=== PATIENT | female | born 1990 | race American Indian/Alaskan Native ===

== ENCOUNTER 2021-06-11 21:11 | Emergency (ER) | payer MEDICAID ==
[2021-06-11 21:24] VITALS: BP 116/59
[2021-06-11] MEDS ORDERED: LIDOCAINE-MPF (1%) 10 MG/1 ML VIAL 5 ML INFILTRATI ONE (21:50)
[2021-06-11] MEDS ORDERED: ACETAMINOPHEN 500 MG TAB PO ONE (21:50)
[2021-06-11] MEDS ORDERED: TETANUS,DIPH,PERTUSS(ACELL) VACCINE 0.5 ML SYRINGE IM ONE (21:50)
[2021-06-11] MEDS ORDERED: IBUPROFEN 600 MG TAB PO ONE (21:50)
--- NOTE | 2021-06-11 23:01 | Emergency Department Report ---
ED General Adult HPI - General Chief complaint: Puncture Wound Stated complaint: RIGHT HAND INJURY Source: patient Mode of arrival: Ambulatory Limitations: No Limitations - History of Present Illness Initial comments: Patient is a 30-year-old -[place] female with no past medical history presents to the ED with complaint of acute onset persistent severe painful right thumb puncture wound after she accidentally had a metallic fishhook punctured her right thumb and got embedded into it about 2 hours prior to arrival in the ED. Patient states that she had forgotten a fishhook in her vehicle when she went to the trunk of the vehicle to retrieve the fishhook and accidentally it ended up puncturing her right thumb and got embedded into it. Patient states that she is not up-to-date with her tetanus vaccinations. Patient denies numbness and tingling or weakness of right hand or right hand, fall, nausea, vomiting, dizziness, syncope or heavy lifting. MD Complaint: Painful right thumb puncture wound -: Sudden, hour(s) (2) Location: upper extremity (Right thumb) Radiation: non-radiation Severity scale (0 -10): 8 Quality: aching, sharp Consistency: constant Improves with: none Worsens with: none Associated Symptoms: denies other symptoms, other (Small puncture wound on right thumb with fishhook). denies: confusion, chest pain, cough, diaphoresis, fever/chills, headaches, loss of appetite, malaise, nausea/vomiting, rash, seizure, shortness of breath, syncope Treatments Prior to Arrival: none - Related Data Previous Rx's Medication Instructions Recorded Last Taken Type Ibuprofen [Motrin] 800 mg PO Q8HR PRN #30 tablet 06/11/21 Unknown Rx Sulfamethoxazole/Trimethoprim 1 each PO Q12H #20 tablet 06/11/21 Unknown Rx [Bactrim DS TAB] Allergies Allergy/AdvReac Type Severity Reaction Status Date / Time No Known Allergies Allergy Unverified 06/11/21 21:26 ED Review of Systems ROS: Stated complaint: RIGHT HAND INJURY Other details as noted in HPI Constitutional: denies: chills, fever Eyes: denies: eye pain, eye discharge, vision change ENT: denies: ear pain, throat pain Respiratory: denies: cough, shortness of breath, wheezing Cardiovascular: denies: chest pain, palpitations Endocrine: no symptoms reported Gastrointestinal: denies: abdominal pain, nausea, diarrhea Genitourinary: denies: urgency, dysuria, discharge Musculoskeletal: arthralgia (Painful right thumb due to a small puncture wound with fishhook). denies: back pain, joint swelling Skin: other (Small puncture wound with a fishhook on right thumb with a localized pain). denies: rash, lesions Neurological: denies: headache, weakness, paresthesias Psychiatric: denies: anxiety, depression Hematological/Lymphatic: denies: easy bleeding, easy bruising ED Past Medical Hx - Past Medical History Previous Medical History?: No - Surgical History Past Surgical History?: No - Social History Smoking Status: Never Smoker Substance Use Type: None - Medications Home Medications: Home Medications Medication Instructions Recorded Confirmed Last Taken Type Ibuprofen [Motrin] 800 mg PO Q8HR PRN #30 tablet 06/11/21 Unknown Rx Sulfamethoxazole/Trimethoprim 1 each PO Q12H #20 tablet 06/11/21 Unknown Rx [Bactrim DS TAB] ED Physical Exam - General Limitations: No Limitations General appearance: alert, in no apparent distress - Head Head exam: Present: atraumatic, normocephalic, normal inspection - Eye Eye exam: Present: normal appearance, PERRL, EOMI Pupils: Present: normal accommodation - ENT ENT exam: Present: normal exam, normal orophraynx, mucous membranes moist, TM's normal bilaterally, normal external ear exam - Neck Neck exam: Present: normal inspection, full ROM - Respiratory Respiratory exam: Present: normal lung sounds bilaterally. Absent: respiratory distress, wheezes, rales, rhonchi, chest wall tenderness, accessory muscle use - Cardiovascular Cardiovascular Exam: Present: regular rate, normal rhythm, normal heart sounds. Absent: systolic murmur, diastolic murmur, rubs, gallop - GI/Abdominal GI/Abdominal exam: Present: soft, normal bowel sounds. Absent: tenderness, guarding, rebound, hyperactive bowel sounds, hypoactive bowel sounds, organomegaly - Extremities Exam Extremities exam: Present: normal inspection, full ROM, tenderness (Palpable right thumb tenderness due to a small puncture wound with metallic fishhook still embedded), normal capillary refill. Absent: pedal edema, joint swelling, calf tenderness - Back Exam Back exam: Present: normal inspection, full ROM. Absent: tenderness, CVA tenderness (R), CVA tenderness (L), muscle spasm, paraspinal tenderness, vertebral tenderness - Neurological Exam Neurological exam: Present: alert, oriented X3, CN II-XII intact, normal gait, reflexes normal - Psychiatric Psychiatric exam: Present: normal affect, normal mood - Skin Skin exam: Present: warm, dry, intact, normal color, other (Small puncture wound on right thumb from an embedded metallic fishhook with localized tenderness). Absent: rash ED Course Vital Signs 06/11/21 21:24 Temperature 98.2 F Pulse Rate 78 Respiratory 16 Rate Blood Pressure 116/59 [Left] O2 Sat by Pulse 99 Oximetry ED Medical Decision Making - Medical Decision Making This is a 30-year-old -[place] female with no past medical history presents to the ED with complaint of acute onset persistent severe painful right thumb puncture wound after she accidentally had a metallic fishhook punctured her right thumb and got embedded into it about 2 hours prior to arrival in the ED. Patient states that she had forgotten a fishhook in her vehicle when she went to the trunk of the vehicle to retrieve the fishhook and accidentally it ended up puncturing her right thumb and got embedded into it. In the ED, patient is alert and oriented x3 and is not in any distress but appears to be in significant pain. Patient was treated for pain in the ED and also received booster tetanus vaccinations. The right thumb was cleaned thoroughly with normal saline and Betadine solution and a local anesthetic lidocaine 1% solution infiltrated on to the right thumb using the digital blockage technique to lo abigail anesthetize right hand. When anesthesia was fully achieved, the embedded fishhook was successfully removed with a hemostat. Patient tolerated the procedure well. The wound was then cleaned thoroughly with normal saline and dressed appropriately with 4 x 4 gauze as well as Kerlix. Patient was therefore discharged home on pain medications and prophylactic antibiotics and was advised to follow-up with her primary care physician in 7 to 10 days for reevaluation or return to the ED immediately if symptoms get worse. - Differential Diagnosis Puncture wound; finger laceration; abrasion; foreign body in right arm Critical care attestation.: If time is entered above; I have spent that time in minutes in the direct care of this critically ill patient, excluding procedure time. ED Disposition Clinical Impression: Acute foreign body of right thumb Qualifiers: Encounter type: initial encounter Qualified Code(s): S60.351A - Superficial foreign body of right thumb, initial encounter Puncture wound of right thumb with foreign body without damage to nail Qualifiers: Encounter type: initial encounter Qualified Code(s): S61.041A - Puncture wound with foreign body of right thumb without damage to nail, initial encounter Disposition: TO HOME OR SELFCARE Is pt being admited?: No Does the pt Need Aspirin: No Condition: Stable Instructions: Puncture Wound, Awny-rb-Aloz, Skin Foreign Body Additional Instructions: Take medication with food, drink plenty of fluids and follow-up with your primary care physician in 7 to 10 days for reevaluation. Return to the ED immediately if symptoms get worse. Prescriptions: Sulfamethoxazole/Trimethoprim [Bactrim DS TAB] 1 each PO Q12H #20 tablet Ibuprofen [Motrin] 800 mg PO Q8HR PRN #30 tablet PRN Reason: Pain , Severe (7-10) Referrals: [facility] [Provider Group] - 7-10 days Time of Disposition: 23:01 Print Language: SAMOAN
== END 2021-06-11 23:33 | disposition home or self-care (01) ==
LOC: ED 21:11
DX: S61.041A Puncture wound with foreign body of right thumb without damage to nail, initial encounter (principal); Z79.1 Long term (current) use of non-steroidal anti-inflammatories (NSAID); Z79.899 Other long term (current) drug therapy; X58.XXXA Exposure to other specified factors, initial encounter; Y93.89 Activity, other specified; Y92.89 Other specified places as the place of occurrence of the external cause; Y99.8 Other external cause status
CPT/HCPCS: 90471; 90715; 99282